=== PATIENT | female | born 1940 | race Caucasian/White ===

== ENCOUNTER 2017-09-08 17:27 | Inpatient (IN) | payer OTHER ==
[~2017-09-08] VITALS: Ht 157.5 cm; Wt 71.2 kg
[2017-09-08 18:36] LABS: BASOPHIL % 0.8 % (0-2); PLATELET COUNT 270 x10^3mcL (130-400); RED CELL DISTRIBUTION WIDTH 13.7 % (11.5-14.5)
[2017-09-08 18:42] LABS: CALCIUM 8.6 mg/dL (8.5-10.1); CARBON DIOXIDE 26.9 mmol/L (21-32); CHLORIDE SERUM 103 mmol/L (98-107); CREATININE SERUM 0.8 mg/dL (0.6-1.0); GLUCOSE SERUM 100 mg/dL (74-106); POTASSIUM SERUM 4.3 mmol/L (3.5-5.1); SODIUM SERUM 137 mmol/L (136-145)
[2017-09-08 18:47] LABS: ALBUMIN 3.7 g/dL (3.4-5.0); ALKALINE PHOSPHATASE 103 U/L (46-116); ALT/SGPT 21 U/L (14-59); AST/SGOT 19 U/L (15-37); BILIRUBIN TOTAL 0.3 mg/dL (0.20-1.00); TOTAL PROTEIN, SERUM 7.5 g/dL (6.4-8.2)
[2017-09-08 20:38] LABS: MAGNESIUM 2.2 mg/dL (1.8-2.4); PHOSPHOROUS 3.5 mg/dL (2.5-4.9)
[2017-09-08 20:41] LABS: CHOLESTEROL/HDL RATIO 4.3
[2017-09-08 20:43] LABS: T3 TOTAL 1.07 ng/mL
[2017-09-08 20:46] LABS: FREE T4 1.06 ng/dL (0.76-1.46); FREE THYROXINE INDEX 2.8 ug/dL (1.4-4.5); T4(THYROXINE) 8.9 ug/dL (4.7-13.3)
[2017-09-08 21:30] VITALS: BP 146/56
[2017-09-08 21:41] VITALS: Ht 157.5 cm; Wt 71.2 kg
[2017-09-08] MEDS ORDERED: AMBIEN10 MG PO (22:44)
[2017-09-08] MEDS ORDERED: EPZICOM1 TAB (22:47)
[2017-09-09 02:16] LABS: microscopic required? NO
[2017-09-09 03:11] LABS: urine erythrocyte NEGATIVE (NEGATIVE)
[2017-09-09 06:21] VITALS: BP 112/52
[2017-09-09 06:34] LABS: BASOPHIL % 0.9 % (0-2); PLATELET COUNT 226 x10^3mcL (130-400); RED CELL DISTRIBUTION WIDTH 13.8 % (11.5-14.5)
[2017-09-09 06:44] LABS: CALCIUM 8.4 mg/dL (8.5-10.1); CARBON DIOXIDE 27.3 mmol/L (21-32); CHLORIDE SERUM 108 mmol/L (98-107); CREATININE SERUM 0.6 mg/dL (0.6-1.0); GLUCOSE SERUM 90 mg/dL (74-106); MAGNESIUM 2.1 mg/dL (1.8-2.4); PHOSPHOROUS 3.5 mg/dL (2.5-4.9); POTASSIUM SERUM 5.1 mmol/L (3.5-5.1); SODIUM SERUM 142 mmol/L (136-145)
[2017-09-09 09:54] VITALS: BP 100/62
[2017-09-09 13:14] VITALS: BP 141/57
== END 2017-09-09 15:45 | disposition left against medical advice (07) | DRG 74 ==
LOC: ED 17:27 → DU 19:50
PROVIDERS: Emergency Medicine; Family Medicine
DX: G90.8 Other disorders of autonomic nervous system (principal); S09.90XA Unspecified injury of head, initial encounter; T42.6X5A Adverse effect of other antiepileptic and sedative-hypnotic drugs, initial encounter; R55 Syncope and collapse; R13.10 Dysphagia, unspecified; G47.00 Insomnia, unspecified; H40.9 Unspecified glaucoma; I45.10 Unspecified right bundle-branch block; I35.0 Nonrheumatic aortic (valve) stenosis; M75.91 Shoulder lesion, unspecified, right shoulder; E78.1 Pure hyperglyceridemia; E78.5 Hyperlipidemia, unspecified; Z68.25 Body mass index [BMI] 25.0-25.9, adult; W18.39XA Other fall on same level, initial encounter; Y92.009 Unspecified place in unspecified non-institutional (private) residence as the place of occurrence of the external cause
CPT/HCPCS: 83880; 84439; 92610-GN; 97530-GP; J7030; Q0092